=== PATIENT | female | born 1995 | race Hispanic/Latino ===

== ENCOUNTER 2020-02-07 15:24 | Observation (INO) | payer BC, MEDICAID ==
[~2020-02-07 15:24] MED LIST: PREN-64 PO
[2020-02-07 16:05] LABS: APPEARANCE,URINE Clear (CLEAR); BILIRUBIN,URINE Negative (NEGATIVE); COLOR,URINE Yellow (YELLOW); GLUCOSE, URINE (UA) Negative (NEGATIVE); KETONES,URINE Negative (NEGATIVE); LEUKOCYTE ESTERASE ,URINE Negative (NEGATIVE); NITRATE,URINE Negative (NEGATIVE); OCCULT BLOOD,URINE Negative (NEGATIVE); PROTEIN,URINE Negative (NEGATIVE)
== END 2020-02-07 16:42 | disposition home or self-care (01) ==
LOC: EDH 15:24 → LDH 15:44
PROVIDERS: ADMIT Obstetrics & Gynecology; ATTEND Obstetrics & Gynecology
DX: O60.03 Preterm labor without delivery, third trimester (principal); Z3A.37 37 weeks gestation of pregnancy
CPT/HCPCS: 81003; 99284; G0378

== ENCOUNTER 2021-06-11 05:37 | Day surgery (SDC) | payer MEDICAID ==
[2021-06-10 16:16] LABS: BASOPHILS % (AUTO) 0.4 % (0.0-5.0); EOSINOPHILS % (AUTO) 1.8 % (0.0-8.0); HEMATOCRIT 42.2 % (36-48); LYMPHOCYTES % (AUTO) 26.1 % (21.0-51.0); MEAN CORPUSCULAR HEMOGLOBIN 27.2 pg (27.0-33.0); MEAN CORPUSCULAR HGB CONC 32.9 g/dL (32.0-36.0); MEAN CORPUSCULAR VOLUME 82.6 fL (79-99); MONOCYTES % (AUTO) 6.3 % (3.0-13.0); NEUTROPHILS % (AUTO) 64.9 % (40.0-77.0); PLATELET COUNT (AUTO) 260 K/uL (130-400); RED BLOOD CELL COUNT(AUTO) 5.11 MIL/uL (4.00-5.50); RED CELL DISTRIBUTION WIDTH 12.6 % (11.0-15.5); WHITE BLOOD COUNT (AUTO) 7.3 K/uL (4.8-10.8)
[2021-06-10 16:22] VITALS: BP 114/69
[2021-06-11] VITALS (9 sets, daily range): BP systolic 113–129; BP diastolic 72–86
[~2021-06-11] VITALS: Ht 147.3 cm; Wt 66.6 kg
[2021-06-11] MEDS ORDERED: LACTATED RINGERS 1000ML 1,000 ML IV ONE (05:57)
[2021-06-11] MEDS ORDERED: ACETIC ACID 0.25% 1,000 ML IRRIG.SOLN ONE (06:31)
[2021-06-11] MEDS ORDERED: STRONG IODINE SOLN 14ML BOTTLE ONE (06:31)
[2021-06-11] MEDS ORDERED: SUCCINYLCHOLINE 200MG/10ML SYR ONE (06:39)
[2021-06-11] MEDS ORDERED: LIDOCAINE PF 100MG/5ML (2%) SYRINGE 5ML ONE (06:39)
[2021-06-11] MEDS ORDERED: DEXAMETHASONE SOD PHOSPHATE 10MG/ML 1ML VIAL ONE (06:39)
[2021-06-11] MEDS ORDERED: PROPOFOL 10 MG/ML 20ML VIAL IV ONE (06:40)
[2021-06-11] MEDS ORDERED: NEOSTIGMINE 5MG/5ML SYR IV ONE (06:40)
[2021-06-11] MEDS ORDERED: MIDAZOLAM HCL 1 MG/ML 2ML VIAL ONE (06:40)
[2021-06-11] MEDS ORDERED: GLYCOPYRROLATE 1 MG/5 ML SYRINGE ONE (06:40)
[2021-06-11] MEDS ORDERED: FENTANYL CITRATE PF 50 MCG/1 ML 2ML VIAL ONE ×2 (06:41→07:10)
[2021-06-11] MEDS ORDERED: ROCURONIUM 10MG/1ML SYR 10 MG/ML ML ONE (06:41)
[2021-06-11] MEDS ORDERED: ONDANSETRON 4MG INJ ONE (06:41)
== END 2021-06-11 09:30 | disposition home or self-care (01) ==
LOC: DAH 05:37
PROVIDERS: ATTEND Obstetrics & Gynecology
DX: N87.9 Dysplasia of cervix uteri, unspecified (principal); Z20.822 Contact with and (suspected) exposure to COVID-19; Z82.49 Family history of ischemic heart disease and other diseases of the circulatory system; Z83.3 Family history of diabetes mellitus; Z83.438 Family history of other disorder of lipoprotein metabolism and other lipidemia; Z80.9 Family history of malignant neoplasm, unspecified; Z98.890 Other specified postprocedural states; Z72.89 Other problems related to lifestyle
CPT/HCPCS: 36415; 57520; 84703; 85025; 86850; 86900; 86901; 87635; 88307; 88341; 88342; A4215; A4221; A4222; A4223; A4351; A4510; A4600; A4663; A6260; C9803; J0330; J1100; J2250; J2405; J2710; J3010 ×2; J3490 ×3; J7120 ×2; J2001; J2704

== ENCOUNTER 2022-05-11 20:55 | Emergency (ER) | payer BC, MEDICAID ==
[~2022-05-11] VITALS: Ht 147.3 cm; Wt 67.1 kg
[2022-05-11 20:56] VITALS: BP 111/74
[2022-05-11] MEDS ORDERED: KETOROLAC 60 MG VIAL (30MG/ML) IM ONE (21:30)
[2022-05-11] MEDS ORDERED: CYCL10TA16 PO (21:33)
[2022-05-11] MEDS ORDERED: NAPR-1180 PO (21:33)
== END 2022-05-11 21:59 | disposition home or self-care (01) ==
LOC: EDH 20:55
DX: M43.6 Torticollis (principal); E66.9 Obesity, unspecified; Z68.30 Body mass index [BMI] 30.0-30.9, adult; Z88.1 Allergy status to other antibiotic agents
CPT/HCPCS: 99284; 96372; J1885

== ENCOUNTER → 2023-01-20 | Outpatient (CLI) | payer BC, MEDICAID ==
[~2023-01-20] MED LIST changes: +CYCL10TA16 PO; +NAPR-1180 PO; -PREN-64 PO
== END | disposition home or self-care (01) ==
LOC: RAH 08:29
PROVIDERS: ATTEND Otolaryngology Plastic Surgery within the Head & Neck
DX: H69.92 Unspecified Eustachian tube disorder, left ear (principal)
CPT/HCPCS: 70480

== ENCOUNTER → 2024-01-13 | Outpatient (CLI) | payer BC, MEDICAID ==
[2024-01-13 12:33] LABS: CHOLESTEROL 228 mg/dL (<200); HDL CHOLESTEROL 62 mg/dL (35-85); LDL DIRECT 155 mg/dL (0-99); TRIGLYCERIDES 157 mg/dL (30-200)
[2024-01-13 12:41] LABS: HEMOGLOBIN A1C 4.9 % (4.0-6.0)
== END | disposition home or self-care (01) ==
LOC: LAB 08:53
PROVIDERS: ATTEND Student in an Organized Health Care Education/Training Program
DX: I10 Essential (primary) hypertension (principal)
CPT/HCPCS: 36415; 80061; 83036